=== PATIENT | female | born 1980 | race Caucasian/White ===

== ENCOUNTER → 2021-09-03 | Outpatient (CLI) | payer OTHER, SELFPAY ==
[2021-09-03 17:38] LABS: Absolute Lymphocyte Count 2.71 X10^3/uL (0.83-4.51); Absolute Neutrophil Count 3.5 X10^3/uL (2.0-7.7); Basophil# 0.06 X10^3/uL; Basophil% 0.9 % (0-1); Eosinophil# 0.15 X10^3/uL; Eosinophils% 2.1 % (0-5); Hematocrit 39.3 % (37-47); Hemoglobin 12.6 g/dL (12.0-15.0); Lymphocyte # 2.71 X10^3/ul (0.83-4.51); Lymphocyte % 38.8 % (19-41); Mean Corp Hgb Conc 32.1 g/dL (32-36); Mean Corpuscular Hgb 28.4 pg (27.0-32.0); Mean Corpuscular Volume 88.5 fL (81-99); Mean Platelet Vol. 10.9 fl (6.2-12.0); Monocyte# 0.59 X10^3/uL; Monocyte% 8.4 % (0-10); NRBC Flagged by Analyzer 0 % (0-5); Neutrophil # 3.46 X10^3/uL (2.7-7.7); Neutrophil % 49.5 % (47-70); Platelet Count 286 K/mm3 (150-450); RBC Distribution Width CV 13.2 % (11.6-14.6); RBC Distribution Width SD 42.6 fl (35.1-43.9); Red Blood Count 4.44 M/mm3 (4.2-5.4)
[2021-09-03 18:16] LABS: ALB/GLOB Ratio 1.1 RATIO (0.9-2.4); AST(SGOT) 9 U/L (15-37); Alanine Aminotransfer ALT/SGPT 17 U/L (13-56); Albumin, Serum 3.9 g/dL (3.2-5.0); Alkaline Phosphatase 56 U/L (45-117); Anion Gap 6 (5-15); BUN 13 mg/dL (7-18); BUN/Creat Ratio 17.1 RATIO (10-20); Chloride 104 mmol/L (98-107); Cholesterol 172 mg/dL (200); Creatinine, Serum 0.76 mg/dL (0.55-1.02); EST Glomerular Filtration Rate 89 mL/min (>60); Est Glom Filt Rate - Afr Amer 108 mL/min (>60); Ferritin 36 ng/mL (8-252); Globulin 3.5 g/dL (2.2-4.2); Glucose 88 mg/dL (74-106); High Density Lipoprotein 50 mg/dL; Potassium 4.1 mmol/L (3.5-5.1); Protein, Total 7.4 g/dL (6.4-8.2); Sodium Level 138 mmol/L (136-145)
[2021-09-03 18:34] LABS: Amphetamine Urine VISTA NEGATIVE (<1000 ng/mL); Barbiturate Urine VISTA NEGATIVE (< 200 ng/mL); Benzodiazepine Urine VISTA NEGATIVE (< 200 ng/mL); Cocaine Urine VISTA NEGATIVE (< 300 ng/mL); Ecstacy Urine VISTA NEGATIVE (< 500 ng/mL); Methadone Urine VISTA NEGATIVE (< 300 ng/mL); PCP Urine VISTA NEGATIVE (< 25 ng/mL); THC Urine VISTA NEGATIVE (< 50 ng/mL); Vista UDS pH Range 7
== END | disposition home or self-care (01) ==
LOC: MFPLAB 16:21
PROVIDERS: PCP Family Medicine; Referring Provider Family Medicine; Visit Provider Family Medicine
DX: M25.551 Pain in right hip (principal); F98.8 Other specified behavioral and emotional disorders with onset usually occurring in childhood and adolescence; Z13.220 Encounter for screening for lipoid disorders; Z79.899 Other long term (current) drug therapy
CPT/HCPCS: 36415; 80053; 80307; 82465; 82728; 83718; 85025

== ENCOUNTER → 2022-03-12 | Outpatient (CLI) | payer OTHER, SELFPAY ==
--- NOTE | 2022-03-12 15:18 | BI_ITS ---
MAMMOGRAPHY - BILATERAL SCREENING REASON FOR EXAM: Female, 41 years old. Routine annual screening examination. PERTINENT HISTORY: Aunt with breast cancer. TECHNIQUE: Digital bilateral breast juan (3D mammographic acquisition) in the CC and MLO projections. 2-D mediolateral oblique (MLO) and craniocaudad (CC) views of both breasts were obtained. CAD: Full Field Digital Mammography with Computer Added Detection was performed. COMPARISON: Comparison is made with prior abdomen examination dated 03/10/2021. FINDINGS: Breast Composition: The breasts are extremely dense, which lowers the sensitivity of mammography. There are no dominant masses or suspicious calcifications. Stable small benign-appearing bilateral axillary lymph nodes. No other significant abnormalities are identified. There has been no significant change since the prior study. BI/SCRN MAMM (CAD)W/JUAN BILAT IMPRESSION: Stable bilateral screening mammogram. Yearly follow-up mammogram recommended. (A) ASSESSMENT CATEGORY: BIRADS Category 2: Benign. A letter regarding these results will be sent to the patient by the facility within 30 days. Approximately 10% of breast cancers are not detected by mammography. A normal mammogram should not delay biopsy of a clinically suspicious abnormality. [id number] Electronically Signed: Geovanny Bronson MD at 10:57 EST ,
== END | disposition home or self-care (01) ==
LOC: OPBI 15:17
PROVIDERS: PCP Family Medicine; Referring Provider Family Medicine; Visit Provider Family Medicine
DX: Z12.31 Encounter for screening mammogram for malignant neoplasm of breast (principal)
CPT/HCPCS: 77063; 77067

== ENCOUNTER 2022-05-10 16:00 | Outpatient (RCR) | payer OTHER, SELFPAY ==
--- NOTE | 2022-04-28 16:02 | HP.PTEVAL_ITS ---
Patient's Visit Information MARCE CONDE is a 41 year old F referred to Physical Therapy by Dr. Dariel Vo MD with a diagnosis of R hip pain. Date of Evaluation: 04/28/22 Physical Therapist: Cb Shook, PT, ATC - Visit Plan Frequency: 2x /Week Duration: 2 Weeks Plan: Issue and educate pt on on HEP of core strengthening, R hip stretching, foam roller, and HEP - Subjective Pt reports she has had R hip pain for greater than 5 years. Pt notes her pain began when she was and has had the pain ever since. Pt reports the pain is located on the posterior aspect of her R glute. Pt reports the pain is generalized and moves around. Pt reports the pain dies not limit her with weightbearing activity, but notes the pain does limit her from trying to sleep at night. Pt reports her has not had any recent tests at this time. Pt reports occasional tingling in her R glute, and sometimes in her foot, but never in her leg. Pt denies LBP at this time. Pt reports she has tried yoga, stretching, and foam rolling, but none of that helped. 2/10 pain at rest, 5/10 at worst - Pain R hip Pain Intensity (Out of 10): 2 Pain Intensity Range: 5 - Objective Neuro: B LE sensation is WNL to light touch. B patellar reflex= 2/3. Palpation: ROM: B LE's are WNL when compared bilaterally. MMT: R hip IR 4/5 and is painful. All other measurements 5/5 throughout B. Repeated movements: RFIS 10x2 NE, TAMMY 10x2 NE. 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 For Medicare and Medicare HMO plans, please review the plan of care and approve it. It will need to be FAXED BACK to us at [phone] for Medicare purposes. For Medicare only, by signing this I certify the plan of care. Please let me know if there are questions or concerns regarding this plan of care. Physician Signature:___ Date:
--- NOTE | 2022-08-11 09:30 | HP.PT.NRP ---
Patient Information Patient Information: MARCE CONDE was seen in my office for initial evaluation on 04/28/22. The following Plan of Care was established for this patient: POC Established Initial Frequency: 2x /Week Initial Duration: 2 Weeks Anticipated Interventions Patient/Client Instruction: Educate patient on: Condition and Plan of Care For the Purpose of:: To improve self management Therapeutic Exercise to Include: Strength training, Flexibilty training and Dynamic Lumbar Stabilization For the Purpose of:: To decrease pain and To improve muscle performance and motor function Last Seen Last Seen: This patient was last seen in our office . Pertinent comments regarding their Physical therapy will appear below: Pt was treated for 4 PT visits for R hip pain through the date of 05/10/22. Pt has not returned through todays date and is discontinued at this time. At this point I will be discontinuing this patient from physical therapy. I would be happy to see this patient again in the future if found appropriate by the physician. Thank you! Cb Shook, PT, ATC Balance/Gait/Functional tests Balance/Special Test Scores Lower Extremity Functional Score: 79
== END 2022-05-10 19:00 | disposition home or self-care (01) ==
LOC: PT 16:00
PROVIDERS: PCP Family Medicine; Referring Provider Family Medicine; Visit Provider Family Medicine
DX: M25.551 Pain in right hip (principal)
CPT/HCPCS: 97110; 97161

== ENCOUNTER → 2023-06-09 | Outpatient (CLI) | payer OTHER, SELFPAY ==
--- NOTE | 2023-06-09 14:30 | BI_ITS ---
MAMMOGRAPHY - BILATERAL SCREENING REASON FOR EXAM: Female, 42 years old. Routine annual screening examination. PERTINENT HISTORY: Aunt with breast cancer. TECHNIQUE: Digital bilateral breast juan (3D mammographic acquisition) in the CC and MLO projections. 2-D mediolateral oblique (MLO) and craniocaudad (CC) views of both breasts were obtained. CAD: Full Field Digital Mammography with Computer Added Detection was performed. COMPARISON: Comparison is made with prior study of March 12, 2022. FINDINGS: Breast Composition: The breasts are extremely dense, which lowers the sensitivity of mammography. There are no dominant masses or suspicious calcifications. Stable small benign-appearing bilateral axillary lymph nodes. No other significant abnormalities are identified. There has been no significant change since the prior study. BI/SCRN MAMM (CAD)W/JUAN BILAT IMPRESSION: Stable bilateral screening mammogram. Yearly follow-up mammogram recommended. (A) ASSESSMENT CATEGORY: BIRADS Category 2: Benign. A letter regarding these results will be sent to the patient by the facility within 30 days. Approximately 10% of breast cancers are not detected by mammography. A normal mammogram should not delay biopsy of a clinically suspicious abnormality. [id number] Electronically Signed: Geovanny Bronson MD at 15:27 EDT ,
== END | disposition home or self-care (01) ==
LOC: OPBI 14:28
PROVIDERS: PCP Family Medicine; Referring Provider Nurse Practitioner Women's Health; Visit Provider Nurse Practitioner Women's Health
DX: Z12.31 Encounter for screening mammogram for malignant neoplasm of breast (principal)
CPT/HCPCS: 77063; 77067

== ENCOUNTER → 2024-06-13 | Outpatient (CLI) | payer OTHER, SELFPAY ==
--- NOTE | 2024-06-13 13:13 | BI_ITS ---
EXAM: SCRN MAMM (CAD)W/JUAN BILAT 06/13/2024 CLINICAL HISTORY: F, Age 43 y/o , SCREENING TECHNIQUE: Bilateral screening digital breast tomosynthesis with 2D and 3D images. Computer aided detection. COMPARISON: Prior exam(s) dated 06/09/2023, 03/12/2022. FINDINGS: TISSUE DENSITY: The breast tissue is heterogenously dense, which may obscure small masses. The mammogram demonstrates that the patient has dense breasts. Supplemental screening with whole breast ultrasound or MRI may be considered for further evaluation. Bilateral Breast Mammographic Findings: There is a mass in the upper inner right breast at middle depth. No significant masses, calcifications or other abnormalities are identified in the left breast. BI/SCRN MAMM (CAD)W/JUAN BILAT IMPRESSION: The mass in the upper inner right breast at middle depth requires further evalu ation. Recommend diagnostic ultrasound of the right breast. Right Breast: BIRADS 0 Incomplete: Need additional imaging evaluation and/or pr ior mammograms for comparison.. Left Breast: BIRADS 1 NEGATIVE. OVERALL FINAL ASSESSMENT: BIRADS 0 Incomplete: Need additional imaging evaluati on and/or prior mammograms for comparison.. RECOMMENDATION: Ultrasound. A letter with findings and recommendations will be mailed to the patient. Reading Location: [id number]
== END | disposition home or self-care (01) ==
PROVIDERS: PCP Family Medicine; Referring Provider Nurse Practitioner Women's Health; Visit Provider Nurse Practitioner Women's Health
DX: Z12.31 Encounter for screening mammogram for malignant neoplasm of breast (principal)
CPT/HCPCS: 77063; 77067

== ENCOUNTER → 2024-06-18 | Outpatient (CLI) | payer OTHER, SELFPAY ==
--- NOTE | 2024-06-18 12:19 | US_ITS ---
PROCEDURE: BREAST LIMITED UNILATERAL 06/18/2024 REASON FOR EXAM: MASS. Extremely dense breast tissue. Inconclusive mammogram. Right breast mass. Mass in upper inner quadrant seen on mammogram study. Evaluate. TECHNIQUE: Right breast ultrasound examination. COMPARISON: Mammogram studies dated 06/13/2024, 06/09/2023, and 03/12/2022 FINDINGS: Ultrasonography was performed and demonstrates a septated cystic masses at the 12 o'clock, 4 cm from the nipple position measuring 9 x 6 x 2 mm, 12 30, 5 cm from the nipple position measuring 11 x 11 x 5 mm, and 12 30, 6 cm from the nipple position measuring 8 x 6 x 3 mm. 1 of these does appear to correlate to the mass seen on the mammogram study. No suspicious solid masses are seen. US/Breast Limited Unilateral IMPRESSION: Impression: Benign-appearing cystic masses are seen in the right breast. 1 of which does correlate to a mass seen on the mammogram. Birads: BI-RADS 2: BENIGN. RECOMMEND ANNUAL MAMMOGRAPHIC SCREENING. The patient should return in 1 year for routine yearly screening mammography. Reading Location: [id number]
== END | disposition home or self-care (01) ==
LOC: OPUS 12:17
PROVIDERS: PCP Family Medicine; Referring Provider Nurse Practitioner Women's Health; Visit Provider Nurse Practitioner Women's Health
DX: N63.12 Unspecified lump in the right breast, upper inner quadrant (principal)
CPT/HCPCS: 76642

== ENCOUNTER → 2024-11-07 | Outpatient (CLI) | payer OTHER, SELFPAY ==
[2024-11-07 10:07] LABS: Hematocrit 43.4 % (37-47); Hemoglobin 14.1 g/dL (12.0-15.0); Mean Corp Hgb Conc 32.5 g/dL (32-36); Mean Corpuscular Volume 84.8 fL (81-99); Mean Platelet Vol. 10.8 fl (6.2-12.0); Platelet Count 307 K/mm3 (150-450); RBC Distribution Width CV 12.3 % (11.6-14.6); RBC Distribution Width SD 37.7 fl (35.1-43.9); Red Blood Count 5.12 M/mm3 (4.2-5.4); White Blood Count 7.5 K/mm3 (4.4-11.0)
[2024-11-07 10:48] LABS: AST(SGOT) 15 U/L (<=31); Alanine Aminotransfer ALT/SGPT 10 U/L (<=34); Albumin, Serum 4.5 g/dL (3.5-5.0); Alkaline Phosphatase 71 U/L (35-104); Anion Gap 11 (5-15); BUN 14 mg/dL (4-19); BUN/Creat Ratio 15.9 RATIO (10-20); Calcium,Total 9.7 mg/dL (7.6-11.0); Carbon Dioxide 26.1 mmol/L (21.0-32.0); Chloride 102 mmol/L (98-108); Cholesterol 227 mg/dL (<=200); Globulin 3.0 g/dL (2.2-4.2); Glucose 104 mg/dL (70-99); Low Density Lipoprotein Calc. 150 mg/dL; Potassium 4.5 mmol/L (3.3-5.1); Triglycerides 87 mg/dL; Very Low Density Lipoprotein 17 mg/dL (5-40); cholesterol:hdl ratio screen 3.83
== END | disposition home or self-care (01) ==
LOC: MFPLAB 08:36
PROVIDERS: PCP Family Medicine; Visit Provider Family Medicine
DX: Z00.00 Encounter for general adult medical examination without abnormal findings (principal); F98.8 Other specified behavioral and emotional disorders with onset usually occurring in childhood and adolescence; E78.6 Lipoprotein deficiency
CPT/HCPCS: 36415; 80053; 80061; 84443; 85027